=== PATIENT | male | born 1960 | race Caucasian/White ===

== ENCOUNTER 2017-05-13 03:38 | Inpatient (IN) | payer OTHER ==
--- NOTE | ~2017-05-13 | HP ---
Unit #: [id number] #: [id number] Patient: JANUARY QUICK [id number] [address] [place], [place] [address] [id number] I MR#: [id number] NAME: JANUARY QUICK ROOM: 462 Age: 56 Sex: M Admission Date: 05/13/2017 : 1960 Attending Physician: Andrew Gilman M.D. Primary Care Physician: Nam Roth M.D. HISTORY AND PHYSICAL HISTORY OF PRESENT ILLNESS A 56-year-old white male with a history of type 2 diabetes mellitus and cellulitis of the right foot in the past was sent to the emergency room with abdominal pain, vomiting, right flank pain, and history of nephrolithiasis, and found to have a distal obstructing stone in the right ureter with hydronephrosis and renal insufficiency, but it is unclear since we have no old labs whether this is new or changed, and he is admitted for treatment for both. Patient is comfortable currently. PAST MEDICAL HISTORY Type 2 diabetes mellitus. PAST SURGICAL HISTORY Left foot surgery. ALLERGIES No known drug allergies. MEDICATIONS PRIOR TO ADMISSION Metformin 500 mg daily p.r.n. SOCIAL HISTORY Employed in maintenance. No alcohol or street drugs. He smokes two packs of cigarettes daily. PHYSICAL EXAMINATION VITAL SIGNS: Afebrile, pulse 75, respirations 18, blood pressure 120/64, and room air O2 saturation 94%. HEENT: Unremarkable. NECK: Supple without JVD, bruits, adenopathy, or thyromegaly. CHEST: Clear to auscultation. HEART: Regular rate and rhythm without any murmurs, rubs, or gallops. ABDOMEN: Soft, nondistended, and nontender, with positive with bowel sounds and no hepatosplenomegaly. EXTREMITIES: No clubbing, cyanosis, or edema. GENITOURINARY/RECTAL: Deferred. NEUROLOGIC: Grossly intact. DIAGNOSTIC STUDIES LABORATORY: White count 11.9 with a left shift, hemoglobin is 12 with a normal MCV, and platelets are 303,000. CMP is normal except for a sodium of 130, CO2 of 19, random blood sugar 204, BUN 38, creatinine 2.3, GFR 30, and albumin 3.2. Amylase and lipase are normal. Urinalysis within normal limits. Unit #: [id number] #: [id number] Patient: JANUARY QUICK IMAGING: CT scan of the abdomen and pelvis reportedly shows an obstructing right distal ureteral stone with hydronephrosis. IMPRESSION 1. Obstructing right distal ureteral stone with hydronephrosis. 2. Renal insufficiency of unknown duration, but by lab evaluation, it looks like it is probably chronic kidney disease. 3. Normocytic, normochromic anemia. 4. Metabolic acidosis. 5. Hyponatremia. PLAN Discontinue metformin. Accu-Cheks a.c. and at bedtime. Low-dose sliding scale insulin. SCDs for DVT prophylaxis. Nephrology and Urology consulted. Hydrate with normal saline. Nephrology has ordered protein electrophoresis, urine osmolality and sodium, CPK, TSH, and cortisol level. I have also ordered a hemoglobin A1c and lactic acid. Further evaluation pending results of the above. Dictated by Stepan Tamez/anabela TD: 05/13/2017 15:32 JOB #: [id number] HISTORY AND PHYSICAL Page 1 of 1 X Andrew Gilman MD X HISTORY AND PHYSICAL
--- NOTE | ~2017-05-13 | OR ---
Unit #: [id number] #: [id number] Patient: JANUARY MORRIS [id number] [address] [address] [id number] Claritza MR#: [id number] NAME: JANUARY MORRIS ROOM: 462 Date of Procedure: 05/14/2017 Admission Date: 05/13/2017 Surgeon: Adrian Baum M.D. : 1960 Attending Physician: Nohemy Iglesias M.D. Primary Care Physician: Nam Roth M.D. PROCEDURE OPERATIVE NOTE PREOPERATIVE DIAGNOSES 1. Right distal ureteral stone. 2. Acute renal failure. POSTOPERATIVE DIAGNOSES 1. Right distal ureteral stone. 2. Acute renal failure. PROCEDURE PERFORMED 1. Cystoscopy. 2. Right ureteroscopy. 3. Laser lithotripsy. 4. Stone basket extraction. 5. Right retrograde pyelogram. 6. Interpretation of right retrograde pyelogram. 7. Insertion of right 6-Angolan x 26 cm double-J stent, with string. SURGEON Adrian Baum M.D. ANESTHESIA General. INDICATIONS FOR PROCEDURE Mr. Morris is a pleasant 56-year-old gentleman with a right distal ureteral stone as well as acute renal failure. The risks, benefits, alternatives including bleeding, infection, damage to adjacent structures, need for further surgery, need for nephrostomy tube as well as all other risks were discussed with the patient and informed consent was obtained. He wished to proceed. DESCRIPTION OF PROCEDURE The patient was taken to the operative suite and properly identified. After the application of satisfactory general anesthetic, the patient was placed in the dorsal lithotomy position. Genitalia were prepped and draped in the usual sterile fashion. He had very limited flexibility of his lower extremities and we took extreme precaution to avoid injury to these. I introduced a rigid 22-Angolan cystoscope. The entire urethra was normal. The prostate was non-obstructing. The bladder had no tumors, stones or masses. I identified the right ureteral orifice. I passed a 0.035 Sensor wire which I was then able to manipulate by the stone. I dilated the distal ureter using Lubriglide dilators from 6-Angolan to 10-Angolan, passed the semi-rigid ureteroscope alongside the wire and the Unit #: [id number] #: [id number] Patient: JANUARY MORRIS stone was encountered in the distal ureter. I used a 270 micron holmium laser (1) starting at 0.6 joules to 6 Hz. It was a hard stone and I increased to 0.8 joules and 8 Hz. The stone fragments well. I removed the fragments as well as a nitinol 0 tip 1.9 Angolan basket atraumatically. I shot a right retrograde pyelogram. The interpretations were as follows. INTERPRETATION OF RIGHT RETROGRADE PYELOGRAM There was mild hydroureteronephrosis. There is a single collecting system. There were no filling defects. I replaced the wire and passed a 6-Angolan x 26 cm double-J stent which coiled in the lower pole of the kidney and in the bladder. I did leave the string attached. The bladder was emptied, the scope was removed. The patient tolerated the procedure well without complications. PLAN We need to monitor his creatinine. He also had some lymphadenopathy on the CT scan. The PSA is pending. I have asked oncology to see him. He will need his stent removed after his creatinine normalizes and it needs to stay for at least 5 to 7 days. Dictated by... Stepan Wise/zac TD: 05/14/2017 12:38 JOB #: [id number] PROCEDURE OPERATIVE NOTE Page 1 of 1 X Adrian Baum MD X PROCEDURE OPERATIVE NOTE
--- NOTE | ~2017-05-13 | CO ---
Unit #: [id number] #: [id number] Patient: JANUARY QUICK [id number] [address] [place], [place] [address] [id number] I MR#: [id number] NAME: JANUARY QUICK ROOM: 462 Age: 56 Sex: M Admission Date: 05/13/2017 : 1960 Attending Physician: Nohemy Iglesias M.D. Primary Care Physician: Nam Roth M.D. Consultation Date: 05/15/2017 CONSULTATION REPORT REASON FOR EVALUATION Enlarged lymph nodes in the inguinal retroperitoneal area. Please evaluate. HISTORY OF PRESENT ILLNESS The patient is a 66-year-old gentleman who came in with nephrolithiasis and mainly a 5 mm distal ureteral right-sided calculus with some hydronephrosis. During the workup he was found to have a 1.5 cm lymph node enlargement in a couple of retroperitoneal lymph nodes and an inguinal lymph node. We were requested to evaluate. Today on questioning, other than the current problems of the kidney stones he has no history of fever, chills, night sweats before. No significant weight loss. PAST MEDICAL HISTORY Diabetes type 2 with some end-organ damage and skin problems due to chronic stasis dermatitis type of picture. SOCIAL HISTORY The patient smokes a couple of packs of cigarettes daily. No alcohol usage. He is employed in maintenance. FAMILY HISTORY Negative for unexplained lymphoma. ALLERGIES No known drug allergies. CHRONIC MEDICATIONS Metformin. REVIEW OF SYSTEMS Mainly remarkable for this ureteral stone related problem, but otherwise six or eight systems are within normal limits. PHYSICAL EXAMINATION GENERAL: Moderately obese. LYMPH: No palpable adenopathy in the vogt or axilla and even the groin area I could not appreciate any lymph nodes. LUNGS: Crackles, no rales. ABDOMEN: Central obesity. No organomegaly otherwise. NEUROLOGIC: ORDER CLERK is grossly intact. RECTAL: Not performed. Unit #: [id number] #: [id number] Patient: JANUARY QUICK DIAGNOSTIC STUDIES IMAGING: CT scan of the abdomen was brought up and reviewed. The results were discussed with the patient. It mainly showed the 5 mm distal right ureteral calculus and there was a 1.5 cm lymph node in the left inguinal region which is not very palpable. Prominent retroperitoneal lymph nodes, although the size was about 1.2 cm. LABORATORY: CBC, hemoglobin 11.2, hematocrit 34.4, white blood cell count 9600, platelets 263,000. On the differential there was 78% neutrophils and 12% lymphocytes. Glucose 254, BUN 30, creatinine 2, sodium 135, potassium 4.7, chloride 109. CO2 20, calcium 8.3, total bilirubin 0.4, direct bilirubin 0.1, AST 29, ALT 29. ASSESSMENT/PLAN At this point I explained to the patient that this could all be incidental inflammatory lymph nodes and that we need a close followup. I will go ahead and schedule him to see me in the office in four to six weeks. We will reexamine the blood work and physical examination and see if there is any palpable adenopathy and recheck the CT of the abdomen and pelvis with contrast at that time if the renal function has returned back to normal, and give the final opinion then. The benefits and risks of this conservative approach were explained to him. He is in full agreement. Dictated by... Stepan Ramos/vince TD: 05/15/2017 09:12 JOB #: [id number] CONSULTATION REPORT Page 1 of 1 X Abhinav Moreira MD X CONSULTATION REPORT
--- NOTE | ~2017-05-13 | DS ---
Unit #: [id number] #: [id number] Patient: JANUARY QUICK [id number] [address] [place], [place] [address] [id number] I MR#: [id number] NAME: JANUARY QUICK ROOM: 462 Age: 56 Sex: M Admission Date: 05/13/2017 : 1960 Discharge Date: 05/15/2017 Attending Physician: Nohemy Iglesias M.D. Primary Care Physician: Nam Roth M.D. DISCHARGE SUMMARY FINAL DIAGNOSES 1. Right distal ureteral stone, status post cystoscopy, right ureteroscopy, laser lithotripsy, stone basket extraction, right retrograde pyelogram: This procedure was done by Dr. Baum on 05/14/2017. 2. Acute renal failure. 3. Possible mild intravascular volume depletion, also secondary to obstruction. 4. Hyponatremia, which is improved. 5. Metabolic acidosis which is resolved. 6. Enlarged lymph node in the inguinal area and retroperitoneal area, etiology unknown at this time. 7. Bilateral diabetic foot ulcer. 8. Diabetes mellitus type 2 with A1c of 9.6. 9. Tobacco abuse. DISCHARGE MEDICATIONS 1. Bactroban, apply topically twice a day. 2. Metformin 1000 mg twice a day. 3. Domeboro topically twice a day. 4. Keflex 500 mg three times a day. 5. Tylenol 650 q.6 p.r.n. CONSULTATION DURING HOSPITALIZATION 1. Dr. Moreira - Hematology services. 2. Dr. Ellsi - Renal services. 3. Dr. Baum - Urology services. 4. Dr. Joseph - Podiatry services. HOSPITAL COURSE Please note - 56-year-old male was admitted by my colleague, Dr. Gilman, with a complaint of right flank pain and vomiting. Patient was diagnosed with right ureteral stone. Dr. Baum was consulted and patient had the procedure done as above. He is doing much better after the procedure and he does not have any pain at this time. The patient's renal functions have improved. Possibly, it was secondary to mild decrease in intravascular volume and also obstruction. Lab workup has improved. Patient does have bilateral foot ulcers. Podiatry evaluated the patient and recommendation is to continue followup with Dr. Edward Ace at [facility]. No surgery is needed at this time. He would need advanced wound care and Dr. Ace is his unstacker. The patient is discharged home on above medication. Unit #: [id number] #: [id number] Patient: JANUARY QUICK VITAL SIGNS on discharge - blood pressure is 129/64, respiratory rate 16, pulse is 75, temperature 97.5. Oxygen saturation is 96%. HEAD is normocephalic. CHEST has fair air entry. CVS - regular rhythm. ABDOMEN is soft. Bilateral feet ulcers are present. DISCHARGE INSTRUCTIONS The patient is being discharged home in stable condition. MEDICATION As per Med Rec. FOLLOWUP 1. Follow up with Dr. Ellis in four to six weeks. 2. Follow up with Dr. Edward Ace at [facility] for diabetic ulcers. Phone number [phone]. 3. Follow up with primary care provider in one week. 4. BMP in one week. 5. Follow up with Dr. Moreira as scheduled for adenopathy in groin and retroperitoneal adenopathy. 6. Tobacco cessation counseling done. Dictated by... Nohemy Iglesias M.D. BRITTON/zac TD: 05/17/2017 08:50 JOB #: [id number] DISCHARGE SUMMARY Page 1 of 1 X Nohemy Iglesias MD X DISCHARGE SUMMARY
--- NOTE | ~2017-05-13 | CR124 ---
[facility] A Service of [facility] & [facility] RADIOLOGY TEXT RESULTS PATIENT: JANUARY QUICK LOCATION: [facility] 462-01 : [birth year] UNIT #: [id number] AGE: [address]: Nohemy Iglesias MD SEX: M ORDER DR: [id number] [facility] [address] [facility]. [place], [place] [address] [id number] I MR#: [id number] Acc #: [id number] NAME: JANUARY QUICK : 1960 SEX: M STUDY DATE/TIME: 05/14/2017 19:32 UNIT: [facility] ROOM: 2 STUDY DESCRIPTION: CR Foot 2 Views Rt Attending Physician: Nohemy Iglesias M.D. Ordering Physician: Nohemy Iglesias M.D. Primary Care Physician: Nam Roth M.D. MEDICAL IMAGING REPORT This report is preliminary unless electronic signature is present EXAM Right foot 3 views HISTORY Ulcers, both feet. States prior injury. Stepped on nail which caused infection. COMPARISON Right foot films 12/19/2013 FINDINGS 3 views of the right foot demonstrate advanced arthropathy involving the first MTP joint, with extensive cortical thickening and periosteal reaction along the medial and lateral aspects of the first metatarsal. There is apparent partial fusion across the first MTP joint. This represents a change from the patient's study from November 2013. Findings could reflect underlying inflammatory arthropathy, such as infection, though concern is raised for possible psoriatic arthritis. Productive bone formation is noted along the base of the fifth metatarsal and also along the plantar aspect of the calcaneus and at the posterior aspect of the calcaneus. Mild arthritic changes at ankle joint. The subtalar joint unremarkable. 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 There may be a developing fusion across the first MTP joint. As discussed above. This may represent infectious arthritis and septic arthritis at the first MTP joint, possibly chronic in nature, given its findings dating back to November 2013. Other considerations might include psoriatic arthritis. Correlate with patient's clinical history and presentation. No definite penetrating ulcer or definitive osteomyelitis is identified, though the changes at the first metatarsal and proximal phalanx of the great toe could have similar presentation to osteomyelitis. [facility] A Service of [facility] & [facility] RADIOLOGY TEXT RESULTS PATIENT: JANUARY QUICK LOCATION: [facility] 462-01 : [birth year] UNIT #: [id number] AGE: [address]: Nohemy Iglesias MD SEX: M ORDER DR: Dictated by... Kymberly Eugene M.D. THIS IS AN ELECTRONICALLY VERIFIED REPORT Kymberly Eugene M.D. at 05/15/2017 3:11 PM Edwardo TD: 05/15/2017 11:23 JOB #: [id number] MEDICAL IMAGING REPORT Page 1 of 1 COPY
--- NOTE | ~2017-05-13 | CO ---
Unit #: [id number] #: [id number] Patient: JANUARY MORRIS [id number] [address] [place], [place] [address] [id number] Claritza MR#: [id number] NAME: JANUARY MORRIS ROOM: 462 Age: 56 Sex: M Admission Date: 05/13/2017 : 1960 Attending Physician: Andrew Gilman M.D. Primary Care Physician: Nam Roth M.D. Consultation Date: 05/13/2017 CONSULTATION REPORT HISTORY OF PRESENT ILLNESS Mr. Morris is a 56-year-old gentleman admitted to the emergency department. He had acute onset of pain in his right flank occurring 7 days ago. The pain was intermittent and sharp and as bad as a 7/10. Over the last day or two, it became worse, increased to 9 or 10 at times. It is unchanged in location. Does radiate slightly to the upper back on the right. He has noted slightly increased blood sugars over his baseline normally and now as well. He had some associated nausea, but no significant vomiting. He has no gross hematuria or fever. No voiding symptoms. He presented to the emergency department. White blood cell count was mildly elevated at 11.9. His creatinine is elevated to 2.3 and sodium was 130. Urinalysis was performed that showed no hematuria or pyuria. The blood sugar is 167. A CT scan was obtained that I personally reviewed. He has 5 mm mid right ureteral calculus with perinephric inflammation and stranding. The kidney is larger than the left as well. The patient has history of passing through the stones in the past. He has never seen a urologist and never had that surgery. He is being admitted for observation for renal insufficiency and stone. PAST MEDICAL HISTORY Significant for diabetes. MEDICATIONS Include metformin. ALLERGIES None. FAMILY HISTORY Negative for stone disease or genitourinary cancers. SOCIAL HISTORY Smoker, two packs per day. He does not use any other drugs. REVIEW OF SYSTEMS He denies any recent chest pain, shortness of breath, cough, fever, change in vision, change in hearing. The remainder of the 10-point review of systems is negative. His symptoms are positive for nausea and pain in the flank, had occasional cough, but this is at this baseline currently. Unit #: [id number] #: [id number] Patient: JANUARY MORRIS PHYSICAL EXAMINATION GENERAL: A pleasant gentleman , who is in no apparent distress. VITAL SIGNS: Reviewed. He had no fever and is not tachycardic. HEENT: Shows no mass or adenopathy. CHEST: Shows symmetric excursion bilaterally. Breath sounds are clear. He has unlabored respirations. CV: Shows strong regular pulse and rhythm. He has strong peripheral pulses and no skipped beats. ABDOMEN: Soft. No guarding. He is mildly distended. He has pain in the right mid flank and right upper quadrant, but no pain in the right lower quadrant or left side at all. There was no distention. : Normal grossly. BACK: Shows [id number] right-sided CVA tenderness to exam. EXTREMITIES: Show no edema or rashes. NEUROLOGIC: Focally intact. He is able to answer questions without difficulty. DIAGNOSTIC STUDIES LABORATORY RESULTS: As above. IMPRESSION 1. Right ureteral stone. 2. Acute renal failure, perhaps obstructive. 3. Diabetes mellitus. PLAN 1. The patient will be admitted to the hospital for observation and hydration. We will strain his urine. Unfortunately, he had solid food around noon today and so we will keep him n.p.o. tonight and add him to the operative schedule tomorrow. 2. If he spikes a fever or has increased vomiting or pain control, we will do as emergency case tonight. 3. Risks, benefits, and alternatives were discussed with the patient. He will proceed to schedule tomorrow. Dictated by... Deep Ag M.D. VI/kalin TD: 05/13/2017 13:46 JOB #: [id number] CONSULTATION REPORT Page 1 of 1 X Deep Ag CONSULTATION REPORT
--- NOTE | ~2017-05-13 | CR123 ---
[facility] A Service of [facility] & [facility] RADIOLOGY TEXT RESULTS PATIENT: JANUARY QUICK LOCATION: [facility] 462-01 : 58 UNIT #: [id number] AGE: [address]: Nohemy Iglesias MD SEX: M ORDER DR: [id number] [facility] [address] [facility]. [place], [place] [address] [id number] I MR#: [id number] Acc #: [id number] NAME: JANUARY QUICK : 1960 SEX: M STUDY DATE/TIME: 05/14/2017 19:30 UNIT: [facility] ROOM: 2 STUDY DESCRIPTION: CR Foot 2 Views Lt Attending Physician: Nohemy Iglesias M.D. Ordering Physician: Nohemy Iglesias M.D. Primary Care Physician: Nam Roth M.D. MEDICAL IMAGING REPORT This report is preliminary unless electronic signature is present EXAM Left foot 3 views HISTORY 56-year-old male with history of foot ulcers for 7 months. Evaluate for osteomyelitis. COMPARISON 10/26/2015 FINDINGS 3 views of the left foot demonstrate apparent amputation of the second toe with extensive destruction of the distal aspect of the second metatarsal. There are also advanced arthritic changes involving the first MTP joint with extensive erosions of the distal first metatarsal and base of the proximal phalanx of the great toe. Less pronounced arthritic changes also seen at the fifth MTP joint. The pattern is nonspecific and could be infectious in etiology, but other considerations would include psoriatic arthritis. Productive bone formation is noted off the posterior aspect of the calcaneus at the Achilles tendon insertion and also at the plantar aspect of the calcaneus. Ankle and subtalar joints unremarkable. There is suspected erosion along the medial aspect of the first metatarsal head with extensive destructive changes within the first metatarsal head that could reflect underlying septic arthritis. This represents a significant change from patient's study of 10/26/2015. IMPRESSION 1. 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 Findings could reflect underlying osteomyelitis and septic arthritis. 2. Patient has undergone apparent amputation of the second toe with extensive osteolysis of the distal aspect the second metatarsal, as STS. [facility] A Service of [facility] RADIOLOGY TEXT RESULTS PATIENT: JANUARY QUICK LOCATION: [facility] 462-01 : 58 UNIT #: [id number] AGE: [address]: Nohemy Iglesias MD SEX: M ORDER DR: well as arthritic changes at the fifth MTP joint. Question is raised for possible superimposed inflammatory arthropathy such as psoriasis or psoriatic arthritis. Correlate clinically. Dictated by... Kymberly Eugene M.D. THIS IS AN ELECTRONICALLY VERIFIED REPORT Kymberly Eugene M.D. at 05/15/2017 3:11 PM Edwardo TD: 05/15/2017 11:15 JOB #: [id number] MEDICAL IMAGING REPORT Page 1 of 1 COPY
--- NOTE | ~2017-05-13 | CO ---
Unit #: [id number] #: [id number] Patient: WICHO MORRIS [id number] [address] [address] [id number] Clar[place] MR#: [id number] NAME: WICHO MORRIS ROOM: 462 Age: 56 Sex: M Admission Date: 05/13/2017 : 1960 Attending Physician: Andrew Gilman M.D. Primary Care Physician: Nam Roth M.D. Consultation Date: 05/13/2017 CONSULTATION REPORT REASON FOR CONSULTATION Renal insufficiency. Thank you very much for asking me to see this patient in consultation. HISTORY OF PRESENT ILLNESS Mr. Wicho Morris is a 56-year-old male, who presented to the hospital with few days of constipation and some right-sided flank pain upon some nausea over the last 24 to 36 hours; although, no diarrhea and has been eating and drinking some, who upon presentation noted to have BUN and creatinine of 38 and 2.3. Because of this, I was asked to see the patient. The patient did undergo a CT scan; although, report written on the ER sheet although I have not seen it shows a right ureteral stone with hydronephrosis. The patient states he is not taking any nonsteroidals at home. PAST MEDICAL HISTORY History of anxiety, history of gastroesophageal reflux disease. Denies any PPIs at this time. History of obstructive sleep apnea, history of allergic rhinitis, history of diabetes times approximately 5 years. ALLERGIES No known drug allergies. SOCIAL HISTORY He smokes about two packs a day. No alcohol. He lives with his girlfriend. REVIEW OF SYSTEMS He denies any severe headaches, dizziness, visual problems, sinus problems. No cough or hemoptysis. No neck pain, neck stiffness. No chest pain, chest heaviness, or palpitations. No shortness of breath. He denies any urinary symptoms of starting of stopping burning, and denies any lower extremity swelling. No recent seizures strokes or skin rashes. FAMILY HISTORY Noncontributory. MEDICATIONS At home include metformin only. He denies any again PPIs or nonsteroidals at this time. PHYSICAL EXAMINATION GENERAL: He is alert and oriented. Unit #: [id number] #: [id number] Patient: WICHO MORRIS VITAL SIGNS: Temperature 98.1, pulse 75 to 91, blood pressure 120 to 148 over 64 to 86. HEENT: Normocephalic and atraumatic. Pupils are equal, round, and reactive to light. Extraocular muscles are intact. Hearing appears to be normal. Mouth clear. No erythema. No exudate. NECK: Supple. No JVD. CARDIAC: Regular rate without a rub. No S3 or S4. LUNGS: Clear bilaterally. No wheezes, rhonchi, or rales. ABDOMEN: Bowel sounds positive. Mild tenderness in the right flank area. No rebound or guarding. EXTREMITIES: No lower extremity swelling. His pulses are intact in lower extremities. JOINTS: No joint pain or joint swelling, SKIN: No acute rash. NEUROLOGIC: Appears intact motor sensory and grossly. : Deferred. DIAGNOSTIC STUDIES LABORATORY RESULTS: Shows sodium of 130, potassium 4.5, chloride is 105, bicarb is 19 with an anion gap of only 6, BUN 38, creatinine 2.3, glucose 204, albumin is 3.2, essentially normal. Hemoglobin is 12, white count 11,900, platelet count 3000. UA shows specific gravity of 1.018. No proteinuria. No hematuria. No pyuria. In 11/2015, creatinine was 1.1. ASSESSMENT AND PLAN 1. Acute kidney injury in this gentleman with increased creatinine. Certainly, I do not know if it could be some mild intravascular volume depletion; although, he also has obstruction; although, was only unilateral and I cannot tell without a report, if it is unilateral or bilateral. I would assume, it is unilateral may or may not be contributing to it. For now, I agree with normal saline. I agree with to evaluate. The patient does have a low albumin of 3.2; although, no proteinuria. Unsure the exact etiology of that. We will go ahead and repeat random urine protein and creatinine ratio. We will go ahead and check an SPEP to rule out myeloma and depending on how his renal function does and what further workup and treatment. Certainly, he is on metformin, but his anion gap is low, so I doubt he has any significant lactic acidosis from this. 2. Hyponatremia. The patient's low sodium probably is combination of renal insufficiency as well as increased glucose. We will check a TSH, cortisone level, urine osmolarity, and urine sodium. We will continue normal saline for now. Check in a.m. 3. Nephrolithiasis with obstruction. has been consulted. 4. Diabetes mellitus. Dictated by.Stepan Valadez/kalin TD: 05/13/2017 11:41 JOB #: [id number] Unit #: [id number] #: [id number] Patient: WICHO MORRIS CONSULTATION REPORT Page 1 of 1 X Kael Ellis MD X CONSULTATION REPORT
--- NOTE | ~2017-05-13 | CT4 ---
[facility] A Service of [facility] & [facility] RADIOLOGY TEXT RESULTS PATIENT: JANUARY QUICK LOCATION: [facility] 462-01 : 58 UNIT #: [id number] AGE: [address]: Nohemy Iglesias MD SEX: M ORDER DR: [id number] [facility] [address] [facility]. [place], [place] [address] [id number] MR#: [id number] Acc #: [id number] NAME: JANUARY QUICK : 1960 SEX: M STUDY DATE/TIME: 05/13/2017 6:46 UNIT: [facility] ROOM: 2 STUDY DESCRIPTION: CT Abd and Pelv Wo Cont Attending Physician: Nohemy Iglesias M.D. Ordering Physician: Abraham Valente M.D. Primary Care Physician: Nam Roth M.D. MEDICAL IMAGING REPORT This report is preliminary unless electronic signature is present REVISED REPORT SEE ADDENDUM EXAM CT abdomen and pelvis without IV contrast COMPARISON None INDICATIONS 56-year-old male with generalized abdominal pain and constipation for approximately 5 days, now with emesis. TECHNIQUE Axial CT imaging of the abdomen and pelvis was performed without IV contrast. Coronal and sagittal reformats were constructed. Lack of IV contrast limits evaluation of adenopathy, vasculature and viscera. This CT exam was performed with one or more of the following radiation dose reduction techniques: automatic exposure control, adjustment of mA and/or kV according to patient size, and iterative reconstruction. FINDINGS There is a large fat-containing right inguinal hernia with moderate left fat-containing hernia. There are prominent included bilateral inguinal lymph nodes measuring up to 1.5 cm short axis on the left. Mild osteoarthritis of both hips. Lateral bridging syndesmophytes seen at L3-L4 on the right. Similar syndesmophytes in the lower thoracic spine. These are findings which would be seen in ankylosing spondylitis or inflammatory bowel disease. There is mild diffuse osteopenia. Mild multilevel degenerative facet disease of the lumbar spine. No acute fractures or suspicious osseous lesions. Evaluation of the lung bases is limited by motion. No acute findings in the lower chest. Unenhanced liver and spleen are unremarkable. There is fluid distension of the STS. [facility] A Service of [facility] & [facility] RADIOLOGY TEXT RESULTS PATIENT: JANUARY QUICK LOCATION: [facility] 462-01 : 58 UNIT #: [id number] AGE: [address]: Nohemy Iglesias MD SEX: M ORDER DR: gallbladder which is otherwise unremarkable. The pancreas is within normal limits. There is a large myelolipoma on the right adrenal gland measuring up to 4.3 cm with a small myelolipoma left adrenal gland measuring up to 1.4 cm. There is an obstructing calculus in the distal right ureter measuring up to 5 mm. There is upstream right hydroureter and right hydronephrosis with right perinephric stranding. Separate nonobstructive punctate calculus in the right kidney. Urinary bladder is unremarkable. Prostate gland is normal in size. Minimal central prostatic calcifications, nonspecific, perhaps due to remote prostatitis. Pelvic phleboliths. No evidence of bowel obstruction. Normal stool burden. Appendix is normal. There is a small amount of fat stranding adjacent to the appendix, favored be transmitted by the adjacent stranding at the right ureter and kidney. No layering free fluid or pneumoperitoneum. Abdominal aorta is normal caliber. There are scattered calcifications of the abdominal aorta, with minimal involvement of the origin on the superior mesenteric artery. Retroperitoneal lymph node in the aortocaval location measuring up to 1.2 cm short axis, possibly reactive with other scattered retroperitoneal lymph nodes seen at the level of the right kidney. IMPRESSION 1. Obstructive 5 mm calculus in the distal right ureter, seen within the pelvis in the distal third of the right ureter. There is upstream hydronephrosis and hydroureter, which are mild. 2. There is an enlarged left inguinal lymph node measuring up to 1.5 cm short axis with other prominent right inguinal lymph nodes and prominent retroperitoneal lymph nodes measuring up to 1.2 cm short axis. While these findings may be reactive, lymphoproliferative process cannot be excluded. Clinical correlation is recommended. Imaging followup recommended as clinically indicated. One could consider CT in 6-12 months. 3. Syndesmophytes of the lumbar spine and thoracic spine as described in the body report. These are findings which can be seen in ankylosing spondylitis or inflammatory bowel disease. Clinical correlation recommended. 4. Mild degenerative changes at both hips. 5. 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 6. There are large right and moderate left fat-containing inguinal hernias. 7. Punctate nonobstructive calculus in the right kidney. Dictated by... January Alvarado M.D. THIS IS AN ELECTRONICALLY VERIFIED REPORT January Alvarado M.D. at 05/21/2017 10:59 AM BLM/to [facility]. [facility] A Service of [facility] & [facility] RADIOLOGY TEXT RESULTS PATIENT: JANUARY QUICK LOCATION: [facility] 462-01 : 58 UNIT #: [id number] AGE: [address]: Nohemy Iglesias MD SEX: M ORDER DR: TD: 05/13/2017 11:43 JOB #: [id number] ADDENDUM There are also enlarged femoral chain lymph nodes bilaterally, measuring up to 1.2 cm on the right. Again, lymphoproliferative disease cannot be excluded. JOB: [id number] Dictated by... January Alvarado M.D. THIS IS AN ELECTRONICALLY VERIFIED REPORT January Alvarado M.D. at 05/25/2017 4:04 PM BLM/pcl TD: 05/13/2017 11:39 JOB #: [id number] CC: Solucy/invision Please Delete MEDICAL IMAGING REPORT Page 1 of 1 COPY
[2017-05-13 04:39] LABS: BASOPHIL# 0.1 X10e3 (0-0.3); BASOPHIL% 0.8 % (0-2.5); DIFF IND NO; EOSINOPHIL# 0.2 X10e3 (0-0.7); EOSINOPHIL% 1.5 % (0.0-7.0); LYMPHOCYTE# 1.5 X10e3 (1.0-3.5); LYMPHOCYTE% 12.2 % (17.0-45.0); MEAN CELL VOLUME 83.7 FL (83-96); MEAN CORPUSCULAR HEMOGLOBIN 27.2 PG (28-34); MEAN CORPUSCULAR HGB CONC 32.4 g/dL (30-36); MEAN PLATELET VOLUME 7.1 FL (6.5-11.5); MONOCYTE# 0.9 X10e3 (0-1.0); MONOCYTE% 7.3 % (3.0-12.0); NEUTROPHIL# 9.3 X10e3 (1.5-7.1); NEUTROPHIL% 78.2 % (40-75); PLATELET COUNT 303 X10e3 (140-420); RED BLOOD COUNT 4.42 X10e (3.90-5.60); RED CELL DISTRIBUTION WIDTH 14.5 % (11.0-15.5); WHITE BLOOD COUNT 11.9 X10e3 (4.0-10.5)
[2017-05-13 05:06] LABS: ALBUMIN SERUM 3.2 g/dL (3.5-5.0); BILIRUBIN, DIRECT 0.1 mg/dL (0.0-0.2); BILIRUBIN,INDIRECT 0.3 mg/dL (0.0-0.9); BILIRUBIN,TOTAL 0.4 mg/dL (0.2-2.0); BUN/CREATININE RATIO 16.52; CALCIUM SERUM 8.5 mg/dL (8.4-10.2); CREATININE SERUM 2.3 mg/dL (0.6-1.4); GLOM FILT RATE Estimated 30.4 mL/min (>60); POTASSIUM 4.5 mmol/L (3.5-5.1); PROTEIN TOTAL SERUM 7.8 g/dL (6.0-8.3)
[2017-05-13 05:35] LABS: URINE SOURCE CLEAN CATCH
[2017-05-13 05:42] LABS: URINE APPEARANCE CLEAR; URINE BILIRUBIN NEG (NEG); URINE BLOOD NEG (NEG); URINE COLOR YELLOW; URINE GLUCOSE NEG (NEG); URINE KETONE NEG (NEG); URINE LEUKOCYTE ESTERASE NEG (NEG); URINE NITRATE NEG (NEG); URINE PROTEIN NEG (NEG); URINE SPECIFIC GRAVITY 1.018 (1.003-1.035); URINE UROBILINOGEN 0.2 MG/DL (NEG)
[2017-05-13 05:46] LABS: CULTURE INDICATED? NO
[2017-05-13] MEDS ORDERED: METFORMIN HCL500 M3 PO (06:16)
[2017-05-13 15:46] LABS: OSMOLALITY,URINE 603 mOsmo/kg (250-900)
[2017-05-13 15:50] LABS: CREATININE,RANDOM URINE 103 mg/dL; SODIUM URINE RANDOM 87 mmol/L; TOTAL PROTEIN,RANDOM URINE 21 mg/dl (<10)
[2017-05-14 03:53] LABS: HEMATOCRIT 34.4 % (38.0-50.0); HEMOGLOBIN 11.2 gm/dL (13.0-16.0); MEAN CELL VOLUME 85.5 FL (83-96); MEAN CORPUSCULAR HEMOGLOBIN 27.8 PG (28-34); MEAN CORPUSCULAR HGB CONC 32.5 g/dL (30-36); MEAN PLATELET VOLUME 7.4 FL (6.5-11.5); RED BLOOD COUNT 4.02 X10e (3.90-5.60); RED CELL DISTRIBUTION WIDTH 14.7 % (11.0-15.5); WHITE BLOOD COUNT 9.6 X10e3 (4.0-10.5)
[2017-05-14 04:20] LABS: CALCIUM SERUM 8.3 mg/dL (8.4-10.2); POTASSIUM 4.7 mmol/L (3.5-5.1)
[2017-05-15 04:09] LABS: BASOPHIL# 0.1 X10e3 (0-0.3); EOSINOPHIL# 0.2 X10e3 (0-0.7); EOSINOPHIL% 2.2 % (0.0-7.0); HEMOGLOBIN 10.6 gm/dL (13.0-16.0); LYMPHOCYTE# 2.1 X10e3 (1.0-3.5); LYMPHOCYTE% 21.7 % (17.0-45.0); MEAN CELL VOLUME 84.9 FL (83-96); MEAN CORPUSCULAR HEMOGLOBIN 27.4 PG (28-34); MEAN CORPUSCULAR HGB CONC 32.2 g/dL (30-36); MEAN PLATELET VOLUME 7.4 FL (6.5-11.5); MONOCYTE# 0.5 X10e3 (0-1.0); MONOCYTE% 5.7 % (3.0-12.0); NEUTROPHIL# 6.7 X10e3 (1.5-7.1); NEUTROPHIL% 69.4 % (40-75); PLATELET COUNT 264 X10e3 (140-420); RED BLOOD COUNT 3.88 X10e (3.90-5.60); RED CELL DISTRIBUTION WIDTH 14.7 % (11.0-15.5); WHITE BLOOD COUNT 9.6 X10e3 (4.0-10.5)
[2017-05-15 04:11] LABS: DIFF IND NO
[2017-05-15 04:31] LABS: BUN/CREATININE RATIO 16.42; CALCIUM SERUM 8.2 mg/dL (8.4-10.2); CREATININE SERUM 1.4 mg/dL (0.6-1.4); GLOM FILT RATE Estimated 55.4 mL/min (>60); POTASSIUM 4.7 mmol/L (3.5-5.1)
[2017-05-15] MEDS ORDERED: KEFLEX500 MG PO (16:31)
[2017-05-15] MEDS ORDERED: [UNRECOGNIZED DRUG - OTHER] TOP (16:33)
[2017-05-15] MEDS ORDERED: BACTROBAN15 GM TOP (16:33)
[2017-05-17 01:51] LABS: PSA, FREE 0.07 ng/mL (())
== END 2017-05-15 18:13 | disposition home or self-care (01) | DRG 669 ==
LOC: CED 03:38 → CEDOF 08:10 → C4C 08:10 → CEDOF 08:23 → CED 08:23 → C4C 08:23 → CEDOF 13:27 → C4C 13:27
PROVIDERS: Emergency Medicine; Internal Medicine Nephrology; Physician Assistant Medical; Urology
PROC: BT1DZZZ Fluoroscopy of Right Kidney, Ureter and Bladder (ICD-10-PCS; 2017-05-14)
PROC: 0TC68ZZ Extirpation of Matter from Right Ureter, Via Natural or Artificial Opening Endoscopic (ICD-10-PCS; principal; 2017-05-14 11:45)
PROC: 0T768DZ Dilation of Right Ureter with Intraluminal Device, Via Natural or Artificial Opening Endoscopic (ICD-10-PCS; 2017-05-14 11:45)
DX: N13.2 Hydronephrosis with renal and ureteral calculous obstruction (principal); E87.2 Acidosis; N17.9 Acute kidney failure, unspecified; E11.621 Type 2 diabetes mellitus with foot ulcer; E87.1 Hypo-osmolality and hyponatremia; N18.9 Chronic kidney disease, unspecified; D64.9 Anemia, unspecified; E11.22 Type 2 diabetes mellitus with diabetic chronic kidney disease; E11.65 Type 2 diabetes mellitus with hyperglycemia; Z79.84 Long term (current) use of oral hypoglycemic drugs; L97.529 Non-pressure chronic ulcer of other part of left foot with unspecified severity; L97.519 Non-pressure chronic ulcer of other part of right foot with unspecified severity; G47.33 Obstructive sleep apnea (adult) (pediatric); F41.9 Anxiety disorder, unspecified; K21.9 Gastro-esophageal reflux disease without esophagitis; K59.00 Constipation, unspecified; F17.210 Nicotine dependence, cigarettes, uncomplicated; R59.0 Localized enlarged lymph nodes
CPT/HCPCS: 36415; 73620; 74176; 80048; 80076; 81003; 82150; 82365; 82533; 82550; 82570; 82947; 83036; 83605; 83690; 83935; 84153; 84154; 84156; 84300; 84443; 85025; 85027; 86334; 88300; 88305; 88312; 96361; 96372; 96374; 96375; 99285; C1758; C2617; J0690; J1650; J1815; J2250; J2270; J2405; J3010